=== PATIENT | female | born 1995 | race Caucasian/White ===

== ENCOUNTER 2016-08-13 03:15 | Emergency (ER) | payer OTHER ==
[~2016-08-13] VITALS: Ht 172.7 cm; Wt 109.7 kg
[~2016-08-13 03:15] MED LIST: BENADRYL25 MG PO; CIPRO500 MG PO; CITRATE OF MAG296 ML PO; COLACE100 MG PO; EFFEXOR XR150 MG PO; FLAGYL500 MG PO; KEFLEX500 MG PO; LATUDA20 MG PO; MACROBID100 MG PO; MIRALAX17 GM PO; MOTRIN800 MG PO; NORCO 5/3251 TABLET PO; NORCO 7.5/321 TABLET PO; PEPCID20 MG PO; PREDNISONE20 MG PO; PYRIDIUM200 MG PO; VENLAFAXINE HC150 M1 PO; VIBRAMYCIN100 MG PO; nohome
[2016-08-13 03:17] VITALS: BP 131/84
== END 2016-08-13 05:00 | disposition left against medical advice (07) ==
LOC: EME 03:15
DX: R10.9 Unspecified abdominal pain (principal); Z53.21 Procedure and treatment not carried out due to patient leaving prior to being seen by health care provider
CPT/HCPCS: 80053; 81003; 84702; 85027

== ENCOUNTER 2016-08-20 23:40 | Emergency (ER) | payer OTHER ==
[~2016-08-20] VITALS: Ht 172.7 cm; Wt 109.6 kg
[2016-08-21] MEDS ORDERED: MEDROL DOSEPAK4 MG PO (00:09)
[2016-08-21] MEDS ORDERED: NORCO 5/3251 TABLET PO (00:09)
[2016-08-21 01:29] VITALS: BP 140/92
== END 2016-08-21 01:30 | disposition home or self-care (01) ==
LOC: EXP 23:40 → EME 23:40 → EXP 08-21 01:30
DX: M54.42 Lumbago with sciatica, left side (principal); F17.200 Nicotine dependence, unspecified, uncomplicated; Z88.0 Allergy status to penicillin; Z88.6 Allergy status to analgesic agent; Z88.8 Allergy status to other drugs, medicaments and biological substances
CPT/HCPCS: 72100; 81003; 84702; 99281; 99284; J1170; J7512

== ENCOUNTER 2016-09-15 22:12 | Emergency (ER) | payer OTHER ==
[~2016-09-15] VITALS: Ht 172.7 cm; Wt 110.0 kg
[~2016-09-15 22:12] MED LIST changes: +MEDROL DOSEPAK4 MG PO
[2016-09-15 22:39] LABS: ADD MIUA? YES; BILIRUBIN NEGATIVE; BLOOD NEGATIVE; COLOR YELLOW ((YELLOW)); GLUCOSE (STRIP) NEGATIVE; KETONES NEGATIVE; LEUKOCYTES NEGATIVE; NITRITE NEGATIVE; PROTEIN (STRIP) NEGATIVE; SPECIFIC GRAVITY 1.017 (1.000-1.030); UROBILINOGEN 0.2 MG/DL (0.2-1.0)
[2016-09-15 22:41] LABS: BACTERIA NONE SEEN /HPF; EPITHELIAL CELLS 1+ /HPF; MUCUS TRACE /LPF; RED BLOOD CELLS 0-5 /HPF (0-5); UCUL ADDED? NO; WHITE BLOOD CELLS 0-5 /HPF (0-5)
[2016-09-15] MEDS ORDERED: ENDOCET 5-3251 EACH PO (23:29)
[2016-09-15 23:30] VITALS: BP 140/85
== END 2016-09-15 23:30 | disposition left against medical advice (07) ==
LOC: EME 22:12
PROVIDERS: Nurse Practitioner Family
DX: M54.41 Lumbago with sciatica, right side (principal); M54.42 Lumbago with sciatica, left side; R10.30 Lower abdominal pain, unspecified; R11.2 Nausea with vomiting, unspecified; R19.7 Diarrhea, unspecified; R31.9 Hematuria, unspecified; R30.0 Dysuria; R39.15 Urgency of urination; R51 Headache; R42 Dizziness and giddiness; Z79.891 Long term (current) use of opiate analgesic; F17.200 Nicotine dependence, unspecified, uncomplicated
CPT/HCPCS: 80053; 81003; 83690; 84702; 85027; 99281; 99283; J1885

== ENCOUNTER 2016-09-17 04:03 | Emergency (ER) | payer OTHER ==
[~2016-09-17] VITALS: Ht 172.7 cm; Wt 110.9 kg
[~2016-09-17 04:03] MED LIST changes: +ENDOCET 5-3251 EACH PO
[2016-09-17 04:54] LABS: HEMATOCRIT 38.5 % (36.0-46.0); MCH 31.9 PG (29.0-34.0); MCHC 35.6 G/DL (30.0-36.0); MCV 89.7 FL (83-99); MEAN PLAT.VOLUME 9.7 uM^3 (9.5-12.4); PLATELET COUNT 237 K/uL (156-360); RBC DIS.WIDTH-CV 12.4 % (11.8-14.6); RBC DIS.WIDTH-SD 39.5 % (39-53); RED BLOOD COUNT 4.29 M/uL (3.80-5.20); WHITE BLOOD COUNT 9.1 K/uL (4.1-10.2)
[2016-09-17 05:01] LABS: CHLORIDE 104 mEq/L (99-109); POTASSIUM 3.2 mEq/L (3.7-5.4); SODIUM 140 mEq/L (136-147)
[2016-09-17 05:03] LABS: GLUCOSE 112 mg/dL (70-99)
[2016-09-17 05:05] LABS: ANION GAP 9 MEQ/L (2-14); TOTAL BILIRUBIN 0.5 mg/dL (0.0-1.0)
[2016-09-17 05:07] LABS: ALKALINE PHOSPHATASE 63 IU/L (3-129); GFR ESTIMATE (CALCULATED) > 59 mL/min/
[2016-09-17 05:08] LABS: UREA NITROGEN (BUN) 6 mg/dL (9-23)
[2016-09-17 05:10] LABS: LIPASE 47 U/L (1.0-51.0)
[2016-09-17 05:13] LABS: ADD MIUA? YES; BILIRUBIN NEGATIVE; BLOOD NEGATIVE; COLOR YELLOW ((YELLOW)); GLUCOSE (STRIP) NEGATIVE; KETONES NEGATIVE; LEUKOCYTES MODERATE; NITRITE NEGATIVE; PROTEIN (STRIP) 30; SPECIFIC GRAVITY 1.015 (1.000-1.030); UROBILINOGEN 0.2 MG/DL (0.2-1.0)
[2016-09-17 05:17] LABS: QUANTITATIVE HCG < 4.0 MIU/ML
[2016-09-17] MEDS ORDERED: PROMETHAZINE HC25 M1 PO (05:25)
[2016-09-17 05:26] LABS: BACTERIA 1+ /HPF; EPITHELIAL CELLS 3+ /HPF; MUCUS TRACE /LPF; UCUL ADDED? NO; WHITE BLOOD CELLS 15-20 /HPF (0-5)
[2016-09-17 05:46] VITALS: BP 130/85
== END 2016-09-17 05:44 | disposition home or self-care (01) ==
LOC: EME 04:03
PROVIDERS: Emergency Medicine
DX: R11.2 Nausea with vomiting, unspecified (principal); E87.6 Hypokalemia; G89.29 Other chronic pain; M54.9 Dorsalgia, unspecified
CPT/HCPCS: 80053; 81003; 83690; 84702; 85027; 99281; 99284; Q0169

== ENCOUNTER 2016-09-23 15:15 | Emergency (ER) | payer SELFPAY ==
[~2016-09-23] VITALS: Ht 172.7 cm; Wt 108.0 kg
[~2016-09-23 15:15] MED LIST changes: +PROMETHAZINE HC25 M1 PO
[2016-09-23 16:02] LABS: HEMATOCRIT 43.3 % (36.0-46.0); MCH 31.4 PG (29.0-34.0); MCHC 35.1 G/DL (30.0-36.0); MCV 89.5 FL (83-99); MEAN PLAT.VOLUME 10.4 uM^3 (9.5-12.4); PLATELET COUNT 248 K/uL (156-360); RBC DIS.WIDTH-CV 12.8 % (11.8-14.6); RBC DIS.WIDTH-SD 41.2 % (39-53); RED BLOOD COUNT 4.84 M/uL (3.80-5.20); WHITE BLOOD COUNT 11.4 K/uL (4.1-10.2)
[2016-09-23 16:10] LABS: CHLORIDE 109 mEq/L (99-109); SODIUM 142 mEq/L (136-147)
[2016-09-23 16:13] LABS: GLUCOSE 102 mg/dL (70-99)
[2016-09-23 16:14] LABS: ANION GAP 10 MEQ/L (2-14)
[2016-09-23 16:15] LABS: TOTAL BILIRUBIN 0.7 mg/dL (0.0-1.0)
[2016-09-23 16:16] LABS: ALKALINE PHOSPHATASE 82 IU/L (3-129); GFR ESTIMATE (CALCULATED) > 59 mL/min/
[2016-09-23 16:17] LABS: UREA NITROGEN (BUN) 9 mg/dL (9-23)
[2016-09-23 16:20] LABS: LIPASE 25 U/L (1.0-51.0)
[2016-09-23 16:25] LABS: QUANTITATIVE HCG < 4.0 MIU/ML
[2016-09-23] MEDS ORDERED: ZOFRAN4 MG PO (17:51)
[2016-09-23 18:02] VITALS: BP 126/76
== END 2016-09-23 18:13 | disposition home or self-care (01) ==
LOC: EME 15:15
DX: K52.9 Noninfective gastroenteritis and colitis, unspecified (principal); F17.200 Nicotine dependence, unspecified, uncomplicated
CPT/HCPCS: 74177; 80053; 81003; 83690; 84702; 85027; 99281; 99285; J1885; J2270; J2405; J7030

== ENCOUNTER 2016-09-27 20:40 | Emergency (ER) | payer SELFPAY ==
[~2016-09-27] VITALS: Ht 172.7 cm; Wt 110.3 kg
[~2016-09-27 20:40] MED LIST changes: +ZOFRAN4 MG PO
[2016-09-27 21:26] LABS: HEMATOCRIT 37.7 % (36.0-46.0); MCH 32.2 PG (29.0-34.0); MCHC 35.3 G/DL (30.0-36.0); MCV 91.3 FL (83-99); MEAN PLAT.VOLUME 10.1 uM^3 (9.5-12.4); PLATELET COUNT 252 K/uL (156-360); RBC DIS.WIDTH-CV 12.4 % (11.8-14.6); RED BLOOD COUNT 4.13 M/uL (3.80-5.20)
[2016-09-27 21:31] LABS: WHITE BLOOD COUNT 6.9 K/uL (4.1-10.2)
[2016-09-27 21:36] LABS: CHLORIDE 109 mEq/L (99-109)
[2016-09-27 21:37] LABS: SODIUM 141 mEq/L (136-147)
[2016-09-27 21:39] LABS: GLUCOSE 81 mg/dL (70-99)
[2016-09-27 21:40] LABS: ANION GAP 10 MEQ/L (2-14)
[2016-09-27 21:42] LABS: ALKALINE PHOSPHATASE 88 IU/L (3-129); GFR ESTIMATE (CALCULATED) > 59 mL/min/; TOTAL BILIRUBIN 0.4 mg/dL (0.0-1.0)
[2016-09-27 21:44] LABS: UREA NITROGEN (BUN) 8 mg/dL (9-23)
[2016-09-27 21:55] VITALS: BP 144/92
[2016-09-27 21:55] LABS: QUANTITATIVE HCG < 4.0 MIU/ML
== END 2016-09-27 21:00 | disposition left against medical advice (07) ==
LOC: EME 20:40
DX: R10.9 Unspecified abdominal pain (principal); R11.2 Nausea with vomiting, unspecified; R50.9 Fever, unspecified; R31.9 Hematuria, unspecified; Z53.21 Procedure and treatment not carried out due to patient leaving prior to being seen by health care provider
CPT/HCPCS: 80053; 81003; 84702; 85027; 99281; 99283

== ENCOUNTER 2016-10-16 05:46 | Emergency (ER) | payer OTHER ==
[~2016-10-16] VITALS: Ht 172.7 cm; Wt 108.3 kg
[2016-10-16 06:54] LABS: MCH 31.6 PG (29.0-34.0); MCV 90.3 FL (83-99); MEAN PLAT.VOLUME 10.4 uM^3 (9.5-12.4); PLATELET COUNT 270 K/uL (156-360); RBC DIS.WIDTH-CV 12.4 % (11.8-14.6); RBC DIS.WIDTH-SD 40.2 % (39-53); RED BLOOD COUNT 4.21 M/uL (3.80-5.20); WHITE BLOOD COUNT 7.1 K/uL (4.1-10.2)
[2016-10-16 07:14] LABS: D-DIMER ELISA < 0.15 mg/L FEU (< 0.57)
[2016-10-16 07:30] LABS: ANION GAP 11 MEQ/L (2-14); CHLORIDE 105 MEQ/L (99-109); GFR ESTIMATE (CALCULATED) > 59 mL/min/; GLUCOSE 89 mg/dL (70-99); POTASSIUM 3.9 MEQ/L (3.7-5.4); SAMPLE HEMOLYSIS CHECK 1; SAMPLE ICTERIC CHECK 0; SAMPLE LIPEMIA CHECK 0; SODIUM 141 MEQ/L (136-147); UREA NITROGEN (BUN) 8 mg/dL (9-23)
[2016-10-16 07:33] LABS: TROP-I INTERPRETATION NEGATIVE; TROPONIN-I < 0.01 ng/mL (0.0-0.30)
[2016-10-16] MEDS ORDERED: MOTRIN800 MG PO (07:59)
[2016-10-16 08:18] VITALS: BP 125/80
== END 2016-10-16 08:33 | disposition home or self-care (01) ==
LOC: EME 05:46
PROVIDERS: Emergency Medicine
DX: R07.89 Other chest pain (principal); M79.1 Myalgia; F17.200 Nicotine dependence, unspecified, uncomplicated
CPT/HCPCS: 71020; 80048; 84484; 85027; 85379; 93005; 99281; 99285; J1885; J7030

== ENCOUNTER 2016-10-23 04:09 | Emergency (ER) | payer OTHER ==
[~2016-10-23] VITALS: Ht 172.7 cm; Wt 107.6 kg
[2016-10-23 04:22] VITALS: BP 125/98
== END 2016-10-23 05:45 | disposition left against medical advice (07) ==
LOC: EME 04:09
DX: R20.0 Anesthesia of skin (principal); Z53.21 Procedure and treatment not carried out due to patient leaving prior to being seen by health care provider; M79.601 Pain in right arm; F17.200 Nicotine dependence, unspecified, uncomplicated

== ENCOUNTER 2016-12-03 17:28 | Emergency (ER) | payer OTHER ==
[~2016-12-03] VITALS: Ht 172.7 cm; Wt 106.0 kg
[2016-12-03] MEDS ORDERED: TRAMADOL HCL50 MG PO (17:57)
[2016-12-03] MEDS ORDERED: CLINDAMYCIN HC150 MG PO (17:57)
[2016-12-03 18:04] VITALS: BP 138/90
== END 2016-12-03 18:09 | disposition home or self-care (01) ==
LOC: EME 17:28
DX: K08.89 Other specified disorders of teeth and supporting structures (principal); F17.200 Nicotine dependence, unspecified, uncomplicated; Z88.0 Allergy status to penicillin
CPT/HCPCS: 99281; 99284

== ENCOUNTER 2016-12-07 23:47 | Emergency (ER) | payer OTHER ==
[~2016-12-07] VITALS: Ht 172.7 cm; Wt 105.4 kg
[~2016-12-07 23:47] MED LIST changes: +CLINDAMYCIN HC150 MG PO; +TRAMADOL HCL50 MG PO
[2016-12-08 00:38] LABS: HEMATOCRIT 40.2 % (36.0-46.0); MCH 31.8 PG (29.0-34.0); MCHC 35.1 G/DL (30.0-36.0); MCV 90.5 FL (83-99); MEAN PLAT.VOLUME 10.1 uM^3 (9.5-12.4); PLATELET COUNT 249 K/uL (156-360); RBC DIS.WIDTH-SD 39.7 % (39-53); RED BLOOD COUNT 4.44 M/uL (3.80-5.20); WHITE BLOOD COUNT 8.2 K/uL (4.1-10.2)
[2016-12-08 00:54] LABS: CHLORIDE 112 mEq/L (99-109); POTASSIUM 3.4 mEq/L (3.7-5.4); SODIUM 144 mEq/L (136-147)
[2016-12-08 00:55] LABS: GLUCOSE 103 mg/dL (70-99)
[2016-12-08 00:57] LABS: ANION GAP 11 MEQ/L (2-14)
[2016-12-08 00:59] LABS: GFR ESTIMATE (CALCULATED) > 59 mL/min/; SERUM ETHYL ALCOHOL 176 mg/dL
[2016-12-08 01:00] LABS: UREA NITROGEN (BUN) 8 mg/dL (9-23)
[2016-12-08 01:12] LABS: QUANTITATIVE HCG < 4.0 MIU/ML
[2016-12-08 06:25] VITALS: BP 113/70
== END 2016-12-08 05:37 | disposition home or self-care (01) ==
LOC: EME 23:47
PROVIDERS: Emergency Medicine
DX: F32.9 Major depressive disorder, single episode, unspecified (principal); S00.532A Contusion of oral cavity, initial encounter; F10.129 Alcohol abuse with intoxication, unspecified; Y90.6 Blood alcohol level of 120-199 mg/100 ml; Y04.2XXA Assault by strike against or bumped into by another person, initial encounter; Z04.6 Encounter for general psychiatric examination, requested by authority; F17.200 Nicotine dependence, unspecified, uncomplicated; Z88.6 Allergy status to analgesic agent; Z88.0 Allergy status to penicillin
CPT/HCPCS: 80048; 81003; 84702; 85027; 90837; 99281; 99285; G0480; J1630

== ENCOUNTER 2016-12-13 10:11 | Emergency (ER) | payer OTHER ==
[~2016-12-13] VITALS: Ht 172.7 cm; Wt 105.1 kg
[2016-12-13 10:34] VITALS: BP 139/80
== END 2016-12-13 12:35 | disposition left against medical advice (07) ==
LOC: EME 10:11
DX: K08.89 Other specified disorders of teeth and supporting structures (principal); Z53.21 Procedure and treatment not carried out due to patient leaving prior to being seen by health care provider

== ENCOUNTER 2017-01-04 06:28 | Emergency (ER) | payer OTHER ==
[~2017-01-04] VITALS: Ht 172.7 cm; Wt 107.4 kg
[2017-01-04] MEDS ORDERED: CLINDAMYCIN HC150 MG PO (07:05)
[2017-01-04] MEDS ORDERED: NAPROXEN500 MG PO (07:05)
[2017-01-04 07:25] VITALS: BP 125/88
== END 2017-01-04 07:26 | disposition home or self-care (01) ==
LOC: EME 06:28
PROC: 3E0T3BZ Introduction of Anesthetic Agent into Peripheral Nerves and Plexi, Percutaneous Approach (ICD-10-PCS; principal; 2017-01-04)
DX: K02.9 Dental caries, unspecified (principal)
CPT/HCPCS: 99281; 99284

== ENCOUNTER 2017-01-11 12:26 | Emergency (ER) | payer OTHER ==
[~2017-01-11] VITALS: Ht 172.7 cm; Wt 107.4 kg
[~2017-01-11 12:26] MED LIST changes: +NAPROXEN500 MG PO
[2017-01-11 12:35] VITALS: BP 130/86
[2017-01-11] MEDS ORDERED: ULTRAM50 MG PO (13:15)
== END 2017-01-11 13:42 | disposition home or self-care (01) ==
LOC: EME 12:26 → RME 12:26
DX: K02.9 Dental caries, unspecified (principal); K08.89 Other specified disorders of teeth and supporting structures; Z88.0 Allergy status to penicillin; Z88.6 Allergy status to analgesic agent; Z88.1 Allergy status to other antibiotic agents
CPT/HCPCS: 99281; 99283

== ENCOUNTER 2017-03-19 21:11 | Emergency (ER) | payer OTHER ==
[~2017-03-19] VITALS: Ht 172.7 cm; Wt 102.6 kg
[~2017-03-19 21:11] MED LIST changes: +ULTRAM50 MG PO
[2017-03-19 22:26] LABS: EOSINOPHIL (%) 2.2 % (0-5); EOSINOPHIL COUNT 0.2 K/uL (0-0.3); HEMATOCRIT 39.7 % (36.0-46.0); IMMATURE GRANULOCYTE (%) 0.4 % (0.0-0.7); INSTRUMENT ABS NEUTROPHIL CT 3.9 K/uL; LYMPHOCYTE COUNT 2.2 K/uL (1.0-2.8); MCH 31.9 PG (29.0-34.0); MCHC 34.8 G/DL (30.0-36.0); MCV 91.9 FL (83-99); MEAN PLAT.VOLUME 9.9 uM^3 (9.5-12.4); MONOCYTE (%) 5.6 % (3-12); MONOCYTE COUNT 0.4 K/uL (0-0.8); NEUTROPHIL (%) 58.5 % (45-76); NEUTROPHIL COUNT 3.9 K/uL (1.8-6.4); PLATELET COUNT 244 K/uL (156-360); RBC DIS.WIDTH-CV 12.3 % (11.8-14.6); RBC DIS.WIDTH-SD 41.4 % (39-53); RED BLOOD COUNT 4.32 M/uL (3.80-5.20); WHITE BLOOD COUNT 6.8 K/uL (4.1-10.2)
[2017-03-19 22:35] LABS: CHLORIDE 105 mEq/L (99-109); POTASSIUM 3.4 mEq/L (3.7-5.4); SODIUM 141 mEq/L (136-147)
[2017-03-19 22:37] LABS: GLUCOSE 85 mg/dL (70-99)
[2017-03-19 22:38] LABS: ANION GAP 10 MEQ/L (2-14)
[2017-03-19 22:39] LABS: TOTAL BILIRUBIN 0.6 mg/dL (0.0-1.0)
[2017-03-19 22:40] LABS: ALKALINE PHOSPHATASE 75 IU/L (3-129)
[2017-03-19 22:41] LABS: GFR ESTIMATE (CALCULATED) > 59 mL/min/
[2017-03-19 22:42] LABS: UREA NITROGEN (BUN) 9 mg/dL (9-23)
[2017-03-19 22:52] LABS: TROP-I INTERPRETATION NEGATIVE; TROPONIN-I 0.01 ng/mL (0.0-0.30)
[2017-03-19 22:53] LABS: QUANTITATIVE HCG < 4.0 MIU/ML
[2017-03-19] MEDS ORDERED: EFFEXOR XR150 MG PO (23:17)
[2017-03-19 23:34] VITALS: BP 137/99
== END 2017-03-19 23:37 | disposition home or self-care (01) ==
LOC: EME → EDBD 21:11 → EME 23:37
PROVIDERS: Emergency Medicine
DX: F19.239 Other psychoactive substance dependence with withdrawal, unspecified (principal); J06.9 Acute upper respiratory infection, unspecified; F17.200 Nicotine dependence, unspecified, uncomplicated
CPT/HCPCS: 71020; 80053; 84484; 84702; 85025; 93005; 94640; 99281; 99285; J7030

== ENCOUNTER 2017-04-08 20:41 | Emergency (ER) | payer OTHER ==
[~2017-04-08] VITALS: Ht 172.7 cm; Wt 102.2 kg
[2017-04-08 21:29] LABS: HEMATOCRIT 40.4 % (36.0-46.0); MCH 32.6 PG (29.0-34.0); MCHC 34.9 G/DL (30.0-36.0); MCV 93.3 FL (83-99); MEAN PLAT.VOLUME 10.6 uM^3 (9.5-12.4); PLATELET COUNT 200 K/uL (156-360); RBC DIS.WIDTH-CV 12.2 % (11.8-14.6); RBC DIS.WIDTH-SD 41.9 % (39-53); RED BLOOD COUNT 4.33 M/uL (3.80-5.20); WHITE BLOOD COUNT 10.1 K/uL (4.1-10.2)
[2017-04-08 21:50] LABS: TROP-I INTERPRETATION NEGATIVE; TROPONIN-I < 0.01 ng/mL (0.0-0.30)
[2017-04-08 23:21] LABS: CHLORIDE 106 mEq/L (99-109); POTASSIUM 3.6 mEq/L (3.7-5.4); SODIUM 141 mEq/L (136-147)
[2017-04-08 23:22] LABS: GLUCOSE 88 mg/dL (70-99)
[2017-04-08 23:28] LABS: GFR ESTIMATE (CALCULATED) > 59 mL/min/; UREA NITROGEN (BUN) 8 mg/dL (9-23)
[2017-04-08 23:37] LABS: QUANTITATIVE HCG < 4.0 MIU/ML
[2017-04-08] MEDS ORDERED: FLEXERIL10 MG PO (23:49)
[2017-04-08] MEDS ORDERED: PROTONIX20 MG PO (23:49)
[2017-04-08] MEDS ORDERED: MOTRIN600 MG PO (23:58)
[2017-04-09 00:34] VITALS: BP 130/86
== END 2017-04-09 00:36 | disposition home or self-care (01) ==
LOC: EME 20:41
DX: K21.9 Gastro-esophageal reflux disease without esophagitis (principal); S16.1XXA Strain of muscle, fascia and tendon at neck level, initial encounter; X50.0XXA Overexertion from strenuous movement or load, initial encounter; Y99.0 Civilian activity done for income or pay; M62.838 Other muscle spasm; F32.9 Major depressive disorder, single episode, unspecified; F41.9 Anxiety disorder, unspecified; F17.200 Nicotine dependence, unspecified, uncomplicated; Z88.0 Allergy status to penicillin
CPT/HCPCS: 71020; 80048; 84484; 84702; 85027; 93005; 99281; 99284; J1885

== ENCOUNTER 2017-06-30 12:55 | Emergency (ER) | payer OTHER ==
[~2017-06-30] VITALS: Ht 170.2 cm; Wt 102.1 kg
[~2017-06-30 12:55] MED LIST changes: +FLEXERIL10 MG PO; +MOTRIN600 MG PO; +PROTONIX20 MG PO
[2017-06-30 13:48] VITALS: BP 143/82
== END 2017-06-30 13:48 | disposition home or self-care (01) ==
LOC: EME 12:55
PROC: 0HQGXZZ Repair Left Hand Skin, External Approach (ICD-10-PCS; principal; 2017-06-30)
DX: S61.213A Laceration without foreign body of left middle finger without damage to nail, initial encounter (principal); W26.9XXA Contact with unspecified sharp object(s), initial encounter; Y93.G1 Activity, food preparation and clean up; F32.9 Major depressive disorder, single episode, unspecified; F17.200 Nicotine dependence, unspecified, uncomplicated; Z88.5 Allergy status to narcotic agent; Z88.0 Allergy status to penicillin; Z88.6 Allergy status to analgesic agent
CPT/HCPCS: 99281; 99283

== ENCOUNTER 2017-07-16 00:24 | Emergency (ER) | payer OTHER ==
[~2017-07-16] VITALS: Ht 172.7 cm; Wt 102.8 kg
[2017-07-16] MEDS ORDERED: CEFTIN250 MG PO (01:21)
[2017-07-16] MEDS ORDERED: ULTRAM50 MG PO (01:21)
[2017-07-16 01:55] VITALS: BP 155/91
== END 2017-07-16 01:57 | disposition home or self-care (01) ==
LOC: EME 00:24
DX: H66.92 Otitis media, unspecified, left ear (principal); S61.213D Laceration without foreign body of left middle finger without damage to nail, subsequent encounter; Z48.89 Encounter for other specified surgical aftercare; F17.200 Nicotine dependence, unspecified, uncomplicated; F32.9 Major depressive disorder, single episode, unspecified; F41.9 Anxiety disorder, unspecified

== ENCOUNTER 2017-09-21 05:39 | Emergency (ER) | payer OTHER ==
[~2017-09-21] VITALS: Ht 172.7 cm; Wt 104.6 kg
[~2017-09-21 05:39] MED LIST changes: +CEFTIN250 MG PO
[2017-09-21 05:43] VITALS: BP 144/91
== END 2017-09-21 06:46 | disposition left against medical advice (07) ==
LOC: EME 05:39
DX: M54.9 Dorsalgia, unspecified (principal); H92.09 Otalgia, unspecified ear; Z53.21 Procedure and treatment not carried out due to patient leaving prior to being seen by health care provider

== ENCOUNTER 2017-09-25 22:46 | Emergency (ER) | payer OTHER ==
[~2017-09-25] VITALS: Ht 170.2 cm; Wt 103.9 kg
[2017-09-25 23:31] LABS: HEMATOCRIT 37.3 % (36.0-46.0); HEMOGLOBIN 13.2 G/DL (11.9-15.5); MCH 32.2 PG (29.0-34.0); MCHC 35.4 G/DL (30.0-36.0); PLATELET COUNT 234 K/uL (156-360); RBC DIS.WIDTH-SD 40.1 % (39-53); WHITE BLOOD COUNT 8.2 K/uL (4.1-10.2)
[2017-09-25 23:42] LABS: ALBUMIN 4.2 g/dL (3.2-4.8); CHLORIDE 106 mEq/L (99-109); POTASSIUM 3.3 mEq/L (3.7-5.4); SODIUM 139 mEq/L (136-147)
[2017-09-25 23:44] LABS: GLUCOSE 121 mg/dL (70-99)
[2017-09-25 23:46] LABS: TOTAL BILIRUBIN 0.3 mg/dL (0.0-1.0)
[2017-09-25 23:48] LABS: ALKALINE PHOSPHATASE 81 IU/L (3-129); CREATININE 0.8 mg/dL (0.6-1.3); GFR ESTIMATE (CALCULATED) > 59 mL/min/
[2017-09-25 23:49] LABS: UREA NITROGEN (BUN) 12 mg/dL (9-23)
[2017-09-25 23:50] LABS: AST (GOT) 27 IU/L (2-34)
[2017-09-25 23:51] LABS: ALT (GPT) 39 IU/L (3-49)
[2017-09-25 23:52] LABS: LIPASE 24 U/L (1.0-51.0); TROP-I INTERPRETATION NEGATIVE; TROPONIN-I < 0.01 ng/mL (0.0-0.30)
[2017-09-25 23:57] LABS: QUANTITATIVE HCG < 4.0 MIU/ML
[2017-09-26] MEDS ORDERED: ZANTAC150 MG PO (00:07)
[2017-09-26 01:15] VITALS: BP 139/80
== END 2017-09-26 01:25 | disposition home or self-care (01) ==
LOC: EME 22:46
PROVIDERS: Emergency Medicine
DX: R07.9 Chest pain, unspecified (principal); F41.9 Anxiety disorder, unspecified; F32.9 Major depressive disorder, single episode, unspecified; Z88.0 Allergy status to penicillin; Z88.5 Allergy status to narcotic agent; Z88.6 Allergy status to analgesic agent; Z91.018 Allergy to other foods
CPT/HCPCS: 71046; 80053; 83690; 84484; 84702; 85027; 93005; 99281; 99284; J7030

== ENCOUNTER 2017-11-05 08:01 | Emergency (ER) | payer OTHER ==
[~2017-11-05] VITALS: Ht 172.7 cm; Wt 106.2 kg
[~2017-11-05 08:01] MED LIST changes: +ZANTAC150 MG PO
[2017-11-05 08:06] VITALS: BP 121/89
[2017-11-05] MEDS ORDERED: CLINDAMYCIN HC150 MG PO (10:17)
[2017-11-05] MEDS ORDERED: NAPROSYN500 MG PO (10:17)
== END 2017-11-05 10:38 | disposition home or self-care (01) ==
LOC: EME 08:01
PROC: 3E0T3BZ Introduction of Anesthetic Agent into Peripheral Nerves and Plexi, Percutaneous Approach (ICD-10-PCS; principal; 2017-11-05)
DX: K04.7 Periapical abscess without sinus (principal); G89.29 Other chronic pain; F17.200 Nicotine dependence, unspecified, uncomplicated; Z88.6 Allergy status to analgesic agent; Z88.5 Allergy status to narcotic agent; Z88.0 Allergy status to penicillin

== ENCOUNTER 2017-11-22 20:54 | Emergency (ER) | payer OTHER ==
[~2017-11-22] VITALS: Ht 172.7 cm; Wt 106.3 kg
[~2017-11-22 20:54] MED LIST changes: +NAPROSYN500 MG PO
[2017-11-22 21:09] VITALS: BP 135/83
== END 2017-11-22 22:36 | disposition left against medical advice (07) ==
LOC: EME 20:54
DX: R51 Headache (principal); Z88.0 Allergy status to penicillin; Z88.6 Allergy status to analgesic agent; Z88.5 Allergy status to narcotic agent
CPT/HCPCS: 99281; 99284; J1100; J2765

== ENCOUNTER 2017-12-31 16:00 | Emergency (ER) | payer OTHER ==
[~2017-12-31] VITALS: Ht 172.7 cm; Wt 105.1 kg
[2017-12-31] MEDS ORDERED: ROBAXIN750 MG PO (19:08)
[2017-12-31] MEDS ORDERED: VOLTAREN75 MG PO (19:08)
[2017-12-31 19:34] VITALS: BP 128/74
== END 2017-12-31 19:35 | disposition home or self-care (01) ==
LOC: EME 16:00
DX: M54.5 Low back pain (principal); M62.830 Muscle spasm of back; Z88.5 Allergy status to narcotic agent; Z88.0 Allergy status to penicillin; Z88.6 Allergy status to analgesic agent

== ENCOUNTER 2018-01-06 04:39 | Emergency (ER) | payer OTHER ==
[~2018-01-06] VITALS: Ht 172.7 cm; Wt 105.5 kg
[~2018-01-06 04:39] MED LIST changes: +ROBAXIN750 MG PO; +VOLTAREN75 MG PO
[2018-01-06] MEDS ORDERED: INDOCIN50 MG PO (05:04)
[2018-01-06] MEDS ORDERED: CEFDINIR300 MG PO (05:04)
[2018-01-06 05:26] VITALS: BP 132/92
[2018-01-07] MEDS ORDERED: TETCAINE15 ML BOTH EARS (19:30)
[2018-01-07] MEDS ORDERED: SUDAFED PE PRE1 EAC2 PO (19:30)
== END 2018-01-06 05:27 | disposition home or self-care (01) ==
LOC: EME 04:39
DX: H66.91 Otitis media, unspecified, right ear (principal); S02.5XXA Fracture of tooth (traumatic), initial encounter for closed fracture; Z88.6 Allergy status to analgesic agent; Z88.5 Allergy status to narcotic agent; Z88.0 Allergy status to penicillin
CPT/HCPCS: 99281; 99283; J1885

== ENCOUNTER 2018-01-07 18:58 | Emergency (ER) | payer OTHER ==
[~2018-01-07] VITALS: Ht 160 cm; Wt 105.7 kg
[~2018-01-07 18:58] MED LIST changes: +CEFDINIR300 MG PO; +INDOCIN50 MG PO
[2018-01-07] MEDS ORDERED: SUDAFED PE PRE1 EAC2 PO (19:30)
[2018-01-07] MEDS ORDERED: TETCAINE15 ML BOTH EARS (19:30)
[2018-01-07 19:39] VITALS: BP 124/83
== END 2018-01-07 19:43 | disposition home or self-care (01) ==
LOC: EME 18:58
DX: H93.8X1 Other specified disorders of right ear (principal); Z88.6 Allergy status to analgesic agent; Z88.5 Allergy status to narcotic agent; Z88.0 Allergy status to penicillin
CPT/HCPCS: 99281; 99283

== ENCOUNTER 2018-02-15 16:03 | Emergency (ER) | payer OTHER ==
[~2018-02-15] VITALS: Ht 172.7 cm; Wt 105.0 kg
[~2018-02-15 16:03] MED LIST changes: +SUDAFED PE PRE1 EAC2 PO; +TETCAINE15 ML BOTH EARS
[2018-02-15 17:17] LABS: HEMATOCRIT 37.9 % (36.0-46.0); HEMOGLOBIN 13.8 G/DL (11.9-15.5); MCH 32.5 PG (29.0-34.0); MCHC 36.4 G/DL (30.0-36.0); MCV 89.2 FL (83-99); PLATELET COUNT 249 K/uL (156-360); RBC DIS.WIDTH-CV 12.4 % (11.8-14.6); RBC DIS.WIDTH-SD 39.5 % (39-53); RED BLOOD COUNT 4.25 M/uL (3.80-5.20); WHITE BLOOD COUNT 7.8 K/uL (4.1-10.2)
[2018-02-15 17:20] LABS: CHLORIDE 105 mEq/L (99-109); POTASSIUM 4.1 mEq/L (3.7-5.4); SODIUM 141 mEq/L (136-147)
[2018-02-15 17:22] LABS: GLUCOSE 85 mg/dL (70-99)
[2018-02-15 17:25] LABS: CREATININE 0.9 mg/dL (0.6-1.3); GFR ESTIMATE (CALCULATED) > 59 mL/min/
[2018-02-15 17:26] LABS: UREA NITROGEN (BUN) 10 mg/dL (9-23)
[2018-02-15 17:32] LABS: TROP-I INTERPRETATION NEGATIVE; TROPONIN-I < 0.01 ng/mL (0.0-0.30)
[2018-02-15 17:34] LABS: QUANTITATIVE HCG < 4.0 MIU/ML
[2018-02-15 18:47] VITALS: BP 136/86
== END 2018-02-15 18:50 | disposition home or self-care (01) ==
LOC: EME 16:03
PROVIDERS: Nurse Practitioner Family
DX: T73.3XXA Exhaustion due to excessive exertion, initial encounter (principal); R07.89 Other chest pain; R11.0 Nausea; R19.7 Diarrhea, unspecified; R51 Headache; F17.200 Nicotine dependence, unspecified, uncomplicated
CPT/HCPCS: 71046; 80048; 84484; 84702; 84702 90; 85027; 93005; 99281; 99284; J2405; J7030

== ENCOUNTER 2018-03-05 20:37 | Emergency (ER) | payer OTHER ==
[~2018-03-05] VITALS: Ht 172.7 cm; Wt 105.1 kg
[2018-03-05 21:23] LABS: HEMATOCRIT 42.2 % (36.0-46.0); MCH 32.8 PG (29.0-34.0); MCHC 35.5 G/DL (30.0-36.0); MCV 92.3 FL (83-99); PLATELET COUNT 252 K/uL (156-360); RBC DIS.WIDTH-CV 12.6 % (11.8-14.6); RBC DIS.WIDTH-SD 42.4 % (39-53); RED BLOOD COUNT 4.57 M/uL (3.80-5.20); WHITE BLOOD COUNT 8.2 K/uL (4.1-10.2)
[2018-03-05 21:40] LABS: ALBUMIN 4.7 g/dL (3.2-4.8); CHLORIDE 107 mEq/L (99-109); POTASSIUM 4.2 mEq/L (3.7-5.4); SODIUM 141 mEq/L (136-147)
[2018-03-05 21:41] LABS: APPEARANCE SL.HAZY ((CLEAR)); BILIRUBIN NEGATIVE; BLOOD MODERATE; COLOR STRAW ((YELLOW)); GLUCOSE (STRIP) NEGATIVE; KETONES NEGATIVE; LEUKOCYTES TRACE; NITRITE NEGATIVE; PROTEIN (STRIP) NEGATIVE; SPECIFIC GRAVITY 1.003 (1.000-1.030); UROBILINOGEN 0.2 MG/DL (0.2-1.0)
[2018-03-05 21:43] LABS: GLUCOSE 89 mg/dL (70-99); TOTAL PROTEIN 7.6 g/dL (6.4-8.3)
[2018-03-05 21:44] LABS: TOTAL BILIRUBIN 0.6 mg/dL (0.0-1.0)
[2018-03-05 21:46] LABS: ALKALINE PHOSPHATASE 68 IU/L (3-129); CREATININE 0.8 mg/dL (0.6-1.3); GFR ESTIMATE (CALCULATED) > 59 mL/min/
[2018-03-05 21:47] LABS: UREA NITROGEN (BUN) 7 mg/dL (9-23)
[2018-03-05 21:48] LABS: AST (GOT) 30 IU/L (2-34)
[2018-03-05 21:49] LABS: ALT (GPT) 46 IU/L (3-49)
[2018-03-05 21:51] LABS: BACTERIA NONE SEEN /HPF; EPITHELIAL CELLS 1+ /HPF; MUCUS NONE SEEN /LPF; RED BLOOD CELLS 0-5 /HPF (0-5); UCUL ADDED? NO; WHITE BLOOD CELLS 0-5 /HPF (0-5)
[2018-03-05 21:57] LABS: QUANTITATIVE HCG < 4.0 MIU/ML
[2018-03-05] MEDS ORDERED: VALIUM5 MG PO (22:23)
[2018-03-05] MEDS ORDERED: ZANTAC300 MG PO (22:23)
[2018-03-05] MEDS ORDERED: NAPROSYN500 MG PO (22:23)
[2018-03-05] MEDS ORDERED: LIDODERM 5% P1 PATCH TD (22:25)
[2018-03-05 23:03] VITALS: BP 140/92
== END 2018-03-05 23:05 | disposition home or self-care (01) ==
LOC: EME 20:37
DX: K21.9 Gastro-esophageal reflux disease without esophagitis (principal); S39.012A Strain of muscle, fascia and tendon of lower back, initial encounter; X58.XXXA Exposure to other specified factors, initial encounter; F31.9 Bipolar disorder, unspecified; Z88.6 Allergy status to analgesic agent; Z88.5 Allergy status to narcotic agent; Z88.0 Allergy status to penicillin; F17.200 Nicotine dependence, unspecified, uncomplicated
CPT/HCPCS: 80053; 81003; 84702; 85027; 99281; 99284; J1885